=== PATIENT | female | born 1990 | race African-American/Black ===

== ENCOUNTER 2018-11-22 20:45 | Emergency (ER) | payer OTHER ==
[2018-11-22 20:48] VITALS: BP 147/72; PULSE 89; TEMP 98.4; BMI 23.0
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
== END 2018-11-22 22:44 | disposition home or self-care (01) ==
LOC: JERFT 20:45
DX: S00.83XA Contusion of other part of head, initial encounter (principal); Y04.2XXA Assault by strike against or bumped into by another person, initial encounter; Y93.89 Activity, other specified; Y92.098 Other place in other non-institutional residence as the place of occurrence of the external cause; Y99.0 Civilian activity done for income or pay; Y07.9 Unspecified perpetrator of maltreatment and neglect
CPT/HCPCS: 70450-TC; 70486-TC; 84703; 99281-25